=== PATIENT | male | born 1980 | race Caucasian/White ===

== ENCOUNTER 2018-01-05 06:38 | Emergency (ER) | payer BC, OTHER, SELFPAY ==
[2018-01-05 07:24] LABS: Absolute Monocytes 0.3 K/uL (0.1-1.3); Absolute Neutrophil 5.2 K/uL (1.8-8.0); Basophils % 0.5 % (0-1.3); Hematocrit 40.1 % (39.6-49.0); Lymphocytes % 25.7 % (15.3-44.8); MCH 31.3 pg (27.0-35.0); MCV 95.5 fL (80-100); MPV 7.7 fL (7.6-11.3); Monocytes % 4.2 % (3.3-12.3)
[2018-01-05 07:26] LABS: Bicarbonate 28 mEq/L (21-31); Glucose Level 166 mg/dL (65-120); Potassium 3.7 mEq/L (3.6-5.0); Sodium Level 139 mEq/L (135-145)
[2018-01-05 07:27] LABS: Protime INR 0.89
[2018-01-05 07:29] LABS: BUN Blood Urea Nitrogen 13 mg/dL (6-20); Creatine Phosphokinase 261 IU/L (22-269); Glomerular Filtration Rate > 90 mL/min (=/>90); Magnesium 1.9 mg/dL (1.8-2.5)
[2018-01-05 07:35] LABS: CKMB Creatine Kinase MB 4.5 ng/ml (0.3-4.0)
--- NOTE | 2018-01-05 07:51 | RAD REPORT ---
EXAM DESCRIPTION: CT - Head Brain Wo Cont - 01/05/2018 7:28 am CLINICAL HISTORY: Syncope COMPARISON: None. TECHNIQUE: Computed axial tomography of the head was obtained. IV contrast was not requested. All CT scans are performed using dose optimization technique as appropriate and may include automated exposure control or mA/KV adjustment according to patient size. FINDINGS: An intracranial bleed is not seen . The ventricles are normal in caliber. No extra-axial fluid collection is noted. Tonsillar cerebellar ectopia is suspected Fluid within the sinuses/ mastoids is not seen. IMPRESSION: No acute intracranial abnormality is seen. If patient's symptoms persist MRI of the bra in would be recommended. Tonsillar cerebellar ectopia suspected
[2018-01-05 07:54] LABS: Barbiturates NEGATIVE; Benzodiazepines NEGATIVE; Cocaine NEGATIVE; METHAMPHETAM NEGATIVE; Opiates POSITIVE; Phencyclidine NEGATIVE; THC Cannibis NEGATIVE
--- NOTE | 2018-01-05 08:15 | ER ---
Nurse's Notes [facility] Name: Jesus Pierson Jr Age: 37 yrs Sex: Male : 1980 Arrival Date: 01/05/2018 Time: 06:42 Bed 15 Private MD: Diagnosis: Essential (primary) hypertension;Syncope and collapse Presentation: 01/05 06:43 Presenting complaint: EMS states: pt was coming through the gate to work and was aa1 shaking and acting strangely and was not responding verbally. Upon arrival to scene EMS reports initial BP of 193/107 upon which they gave pt NTG SL x2. Pt states he remembers seeing a bunch of people around him and he was shaking and felt as if his sugar was low. Pt then drank a coke and began to feel slightly better. BGL taken after drinking his Coke was 171. Upon arrival to ED pt states he feels completely fine now. Reports he did not take his BP medication this am bc he was in a hurry. Transition of care: patient was not received from another setting of care. Onset of symptoms was January 05, 2018. Care prior to arrival: Medication(s) given: Nitroglycerin, 0.4 mg SL x 2, Glucose check: 171. 06:43 Method Of Arrival: EMS: [facility] aa1 06:43 Acuity: MORENO 3 aa1 Historical: - Allergies: 06:51 No Known Allergies; aa1 - Home Meds: 06:51 Bystolic 10 mg oral tab 1 tab once daily [Active]; aa1 - PMHx: 06:51 Diabetes - NIDDM; Hypertension; aa1 - PSHx: 06:51 hand sx; aa1 - Immunization history:: Flu vaccine is not up to date. - Social history:: Smoking status: Patient/guardian denies using tobacco. Screenin:52 Abuse screen: Denies threats or abuse. Denies injuries from another. Nutritional aa1 screening: No deficits noted. Tuberculosis screening: No symptoms or risk factors identified. Fall Risk None identified. Assessment: 06:52 General: Appears in no apparent distress. comfortable, Behavior is calm, cooperative, aa1 appropriate for age. Pain: Denies pain. Neuro: Level of Consciousness is awake, alert, obeys commands, Oriented to person, place, time, situation, Moves all extremities. Full function Gait is steady, Speech is normal, Facial symmetry appears normal, Pupils are PERRLA, Denies blurred vision dizziness, paresthesias numbness headache diplopia. Cardiovascular: Denies chest pain, palpitations, shortness of breath, Heart tones S1 S2 present Rhythm is regular. Respiratory: Airway is patent Respiratory effort is even, unlabored, Respiratory pattern is regular, symmetrical. GI: No signs and/or symptoms were reported involving the gastrointestinal system. : No signs and/or symptoms were reported regarding the genitourinary system. EENT: No signs and/or symptoms were reported regarding the EENT system. Derm: Skin is intact, is healthy with good turgor, Skin is pink, warm \T\ dry. Musculoskeletal: Circulation, motion, and sensation intact. Capillary refill < 3 seconds. 07:00 General: I agree with the above assessment. Bed is in low, locked position. Call light rb1 within reach.. 08:00 Reassessment: Patient appears in no apparent distress at this time. Patient states rb1 feeling better. Patient states symptoms have improved. Vital Signs: 06:51 BP 145 / 90; Pulse 101; Resp 16; Temp 98.5; Pulse Ox 99% on R/A; Weight 124.74 kg; aa1 Height 6 ft. 1 in. (185.42 cm); Pain 0/10; 07:17 BP 147 / 83; Pulse 90; Resp 17; Pulse Ox 98% ; Pain 0/10; rb1 08:15 BP 127 / 95; Pulse 86; Resp 19; Pulse Ox 99% on R/A; rb1 06:51 Body Mass Index 36.28 (124.74 kg, 185.42 cm) aa1 ED Course: 06:42 Patient arrived in ED. em1 06:44 Cecilia Bryant FNP-C is PHCP. kb 06:44 Júnior Radford MD is Attending Physician. kb 06:50 Triage completed. aa1 06:51 Arm band placed on left wrist. Patient placed in an exam room, on a stretcher. aa1 06:52 Patient has correct armband on for positive identification. Placed in gown. Bed in low aa1 position. Call light in reach. Pulse ox on. NIBP on. 06:55 Anuradha Bravo RN is Primary Nurse. aa1 07:02 Initial lab(s) drawn, by me, sent to lab. Inserted saline lock: 20 gauge in right aa1 antecubital area, using aseptic technique. Blood collected. 07:14 Lien Edge, RN is Primary Nurse. rb1 07:25 CT completed. Patient tolerated procedure well. Patient moved to CT via stretcher. 08:32 No provider procedures requiring assistance completed. IV discontinued, intact, rb1 bleeding controlled, No redness/swelling at site. Pressure dressing applied. Administered Medications: No medications were administered Outcome: 08:14 Discharge ordered by . manolo 08:32 Discharged to home ambulatory. rb1 08:32 Condition: stable 08:32 Discharge instructions given to patient, Instructed on discharge instructions, follow up and referral plans. Demonstrated understanding of instructions, follow-up care, Prescriptions given X none 08:33 Patient left the ED. rb1 Signatures: Cecilia Bryant, WINE AND SPIRITS CLERK-C WINE AND SPIRITS CLERK-CkAnuradha Rowland, RN RN [email or web address] Sukhwinder Chaidez emCydney Rivera Lien Edge, RN RN rb1
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
--- NOTE | 2018-01-05 09:33 | EKG ---
Test Date: 2018-01-05 Test Time: 07:49:59 Title I Assistant: AMAlesia MEASUREMENT RESULTS: Intervals: Rate: 86 TX: 154 QRSD: 98 QT: 348 QTc: 416 [place]: P: 60 TX: 154 QRS: 53 T: 39 INTERPRETIVE STATEMENTS: Normal sinus rhythm Normal ECG Compared to ECG 12/23/1999 12:21:00 No significant changes Electronically Signed On 01-05-18 09:32:44 CDT by Nolberto Bueno
[2018-01-05 09:53] LABS: Urine Blood NEGATIVE (NEG); Urine Glucose NEGATIVE (NEG); Urine Protein NEGATIVE (NEG); Urine Specific Gravity 1.025 (1.005-1.030)
== END 2018-01-05 08:33 | disposition home or self-care (01) ==
LOC: ER 06:38
DX: I10 Essential (primary) hypertension (principal)
CPT/HCPCS: 36415; 70450; 80048; 80307; 80320; 81003; 82550; 82553; 83735; 83880; 84484; 85025; 85610; 85730; 93005; 99284